=== PATIENT | female | born 1975 | race Caucasian/White ===

== ENCOUNTER 2019-06-06 04:30 | Emergency (ER) | payer OTHER ==
[~2019-06-06] VITALS: Ht 154.9 cm; Wt 65.8 kg
[~2019-06-06 04:30] MED LIST: ALBU90I INH; ALBU90OI INH; AMOCLA875 PO; AMOX500 PO; AZIT250 PO; Ativan1 MG PO; BUSP10 PO; CEPH500 PO; CHLO25 PO; CITA20 PO; CLIN300 PO; CLON.2; CLON1 PO; CODGUAEL PO; CRUTCH3 USE; CYCL10; DEXGUASY PO; DOXY100 PO; Desyrel PO; FLUSAL2505; FLUSAL2505 IH; FLUT.05NI; FLUT110OIA; HYDACE5 PO; HYDACE7.5 PO; HYDGUAL120 PO; IBUHYD PO; IBUP600 PO; KETO10; LIDO2L MM; LORA.5 PO; LORA1 PO; LORA2 PO; MAGOXI400 PO; METPHE20ER PO; METR500 PO; MORP30ER; MUPI2TC TOP; NAPR500 PO; NAPR550 PO; NIAC250ER; Naltrexone HCl50 MG; ONDA8 PO; OXYACE5T PO; OXYACE7.5T; PENVK500 PO; PRED10 PO; PRED20 PO; PRODEXEL PO; PROM25 PO; Percocet 5-3251 EACH PO; QUET25 PO; RXHYDGUAS PO; RXNAPNA550 PO; RXPENVK250 PO; RXTRAM50 PO; SERT100; SERT100 PO; SERT25; SERT50; SERT50 PO; SULTRIDS PO; Sulfamethoxazo1 EAC4; TRAACE PO; TRAM50 PO; TRAZ100; TRAZ50 PO; VICODIN; Veetids 500500 MG PO; ZOLOFT
[2019-06-06] MEDS ORDERED: SERT100 PO (04:43)
== END 2019-06-06 06:16 | disposition home or self-care (01) ==
LOC: ER 04:30
DX: J02.9 Acute pharyngitis, unspecified (principal); F32.9 Major depressive disorder, single episode, unspecified; F17.210 Nicotine dependence, cigarettes, uncomplicated; Z88.8 Allergy status to other drugs, medicaments and biological substances; Z79.899 Other long term (current) drug therapy
CPT/HCPCS: 87081; 87430; 99283

== ENCOUNTER 2019-06-18 11:21 | Emergency (ER) | payer OTHER ==
[~2019-06-18] VITALS: Ht 154.9 cm; Wt 58.1 kg
[2019-06-18] MEDS ORDERED: FLONASE ALLERG9.9 ML (11:57)
[2019-06-18] MEDS ORDERED: Sudogest30 MG PO (11:57)
[2019-06-18] MEDS ORDERED: PRED20 PO (11:57)
[2019-06-18] MEDS ORDERED: IBUP800 PO (11:57)
== END 2019-06-18 12:07 | disposition home or self-care (01) ==
LOC: ER 11:21
DX: J32.9 Chronic sinusitis, unspecified (principal); Z88.8 Allergy status to other drugs, medicaments and biological substances; Z88.1 Allergy status to other antibiotic agents; Z88.6 Allergy status to analgesic agent; Z79.899 Other long term (current) drug therapy; F32.9 Major depressive disorder, single episode, unspecified; J45.909 Unspecified asthma, uncomplicated; J44.9 Chronic obstructive pulmonary disease, unspecified; F17.210 Nicotine dependence, cigarettes, uncomplicated
CPT/HCPCS: 71046; 94640; 99283-25

== ENCOUNTER 2019-07-10 12:21 | Emergency (ER) | payer OTHER ==
[~2019-07-10] VITALS: Ht 154.9 cm; Wt 56.7 kg
[~2019-07-10 12:21] MED LIST changes: +FLONASE ALLERG9.9 ML; +IBUP800 PO; +Sudogest30 MG PO
== END 2019-07-10 13:52 | disposition home or self-care (01) ==
LOC: ER 12:21
DX: S00.83XA Contusion of other part of head, initial encounter (principal); Y04.8XXA Assault by other bodily force, initial encounter; F32.9 Major depressive disorder, single episode, unspecified; J44.9 Chronic obstructive pulmonary disease, unspecified; Z88.1 Allergy status to other antibiotic agents; Z88.6 Allergy status to analgesic agent; Z88.8 Allergy status to other drugs, medicaments and biological substances; Z79.899 Other long term (current) drug therapy
CPT/HCPCS: 70486; 99284-25

== ENCOUNTER 2019-08-13 12:51 | Emergency (ER) | payer OTHER ==
[~2019-08-13] VITALS: Ht 154.9 cm; Wt 57.1 kg
[2019-08-13 14:07] LABS: BASOPHILS ABSOLUTE AUTO 0.04 K/mm3 (0.00-0.23); BASOPHILS PERCENT AUTO 0 % (0-2); EOSINOPHILS ABSOLUTE AUTO 0.04 K/mm3 (0.00-0.68); EOSINOPHILS PERCENT AUTO 0 % (0-6); Hematocrit 41.4 % (33.0-51.0); IMMATURE GRAN ABSOLUTE AUTO 0.03 K/mm3 (0.00-0.10); IMMATURE GRAN PERCENT AUTO 0 % (0-1); LYMPHOCYTES ABSOLUTE AUTO 3.23 K/mm3 (0.84-5.20); LYMPHOCYTES PERCENT AUTO 24 % (21-46); MONOCYTES ABSOLUTE AUTO 0.73 K/mm3 (0.16-1.47); MONOCYTES PERCENT AUTO 5 % (4-13); Mean Corpuscular HGB 33.1 pg (26.0-34.0); Mean Corpuscular HGB Conc 33.8 g/dL (31.5-36.5); Mean Corpuscular Volume 98 fL (80-100); Mean Platelet Volume 10.5 fL (9.1-12.4); NEUTROPHILS PERCENT AUTO 70 % (41-73); Platelet Count 113 K/mm3 (150-400); RDW Coefficient Variation 14.1 % (11.7-14.2); RDW Standard Deviation 51.5 fL (35.1-46.3); Red Blood Cell Count 4.23 M/mm3 (3.80-5.20); White Blood Cell Count 13.47 K/mm3 (4.00-11.30)
[2019-08-13 14:25] LABS: Troponin I <0.015 ng/mL (0.000-0.040)
[2019-08-13 14:28] LABS: Alanine Aminotransfer (ALT/SGP 161 U/L (12-78); Albumin, Blood 4.5 g/dL (3.4-5.0); Albumin/Globulin Ratio 1.1 (0.8-1.8); Alk Phos 76 U/L (50-136); Anion Gap 10 mmol/L (6-16); Aspartate Aminotrans (AST/SGOT 311 U/L (12-37); Bilirubin, Total 1.2 mg/dL (0.1-1.0); Blood Urea Nitrogen 11 mg/dL (8-24); CO2, Blood 24 mmol/L (21-32); Chloride, Blood 103 mmol/L (98-108); Creatinine, Blood 0.61 mg/dL (0.40-1.00); Globulin, Blood 4.1 g/dL (2.2-4.0); Glomerular Filtration Rate >60 (60-); Glucose, Blood 94 mg/dL (70-99); Potassium, Blood 3.5 mmol/L (3.5-5.5); Sodium, Blood 137 mmol/L (136-145); Total Protein, Blood 8.6 g/dL (6.4-8.2)
[2019-08-14] MEDS ORDERED: SERT100 PO (15:02)
== END 2019-08-13 18:09 | disposition left against medical advice (07) ==
LOC: ER 12:51
PROVIDERS: Physician Assistant
DX: Z53.21 Procedure and treatment not carried out due to patient leaving prior to being seen by health care provider (principal)
CPT/HCPCS: 36415; 71046; 80053; 83690; 84484; 85025; 93005; 93010; 99283

== ENCOUNTER 2019-08-14 09:32 | Inpatient (IN) | payer OTHER ==
[~2019-08-14] VITALS: Ht 154.9 cm; Wt 62.6 kg
[2019-08-14 13:48] LABS: Hematocrit 32.8 % (33.0-51.0); Hemoglobin 11.4 g/dL (11.5-16.0); Mean Corpuscular HGB 33.8 pg (26.0-34.0); Mean Corpuscular HGB Conc 34.8 g/dL (31.5-36.5); Mean Corpuscular Volume 97 fL (80-100); Mean Platelet Volume 11.3 fL (9.1-12.4); Platelet Count 67 K/mm3 (150-400); RDW Coefficient Variation 13.9 % (11.7-14.2); RDW Standard Deviation 49.8 fL (35.1-46.3); Red Blood Cell Count 3.37 M/mm3 (3.80-5.20); White Blood Cell Count 14.88 K/mm3 (4.00-11.30)
[2019-08-14 14:09] LABS: Albumin/Globulin Ratio 0.8 (0.8-1.8); Bilirubin, Total 1.4 mg/dL (0.1-1.0); Bun/Creatinine Ratio 19.3 (12.0-20.0); Calcium, Blood 7.3 mg/dL (8.5-10.1); Creatinine, Blood 1.09 mg/dL (0.40-1.00); Globulin, Blood 3.8 g/dL (2.2-4.0); Potassium, Blood 3.4 mmol/L (3.5-5.5); Total Protein, Blood 6.8 g/dL (6.4-8.2)
[2019-08-14] MEDS ORDERED: SERT100 PO (15:02)
[2019-08-14 15:39] LABS: BAND PERCENT MAN 7 % (0-8); BASOPHILS PERCENT MAN 0 % (0-2); EOSINOPHILS PERCENT MAN 0 % (0-6); LYMPHOCYTES ABSOLUTE MAN 0.89 K/mm3 (0.84-5.20); LYMPHOCYTES PERCENT MAN 6 % (21-46); MONOCYTES ABSOLUTE MAN 0.59 K/mm3 (0.16-1.47); MONOCYTES PERCENT MAN 4 % (4-13); NEUTROPHILS ABSOLUTE MAN 13.39 K/mm3 (1.96-9.15); SEG NEUTROPHILS PERCENT MAN 83 % (41-73); TOTAL CELLS COUNTED 100
--- NOTE | 2019-08-14 18:27 | NUR ---
PATIENT ARRIVED TO THE UNIT VIA STRETCHER. 1 PERSON TRANSFER. STATES LAST DRINK THIS AM. STATES SHE HAS BEEN DRINKING SIGNFICANTLY FOR 14 WEEKS. 1 PERSON ASSIST TO THE BATHROOM. ABLE TO MAKE HER NEEDS KNOWN.
--- NOTE | 2019-08-15 05:29 | NUR ---
SHIFT SUMMARY: CIWA SCORE RANGED FROM 6 TO 15 TONIGHT. PT HAS RESPONDED WELL TO LIBRIUM. STATES PAIN IMPROVED WITH OXYCODONE. 10/10 LOCATED IN RIGHT POSTERIOR BACK AND PT WAS ABLE TO FALL ASLEEP AFTER OXYCODONE DOSE. HAS BEEN COUGHING INTERMITTENTLY WHILE AWAKE, COUGH SOUNDS HACKY AND HAS BEGUN TO PRODUCE BLOOD STREAKED SPUTUM. MAINTAINING 02 SATS WNL ON RA. MAKES NEEDS KNOWN. CALL BUTTON IN REACH, BED LOW.
[2019-08-15 05:48] LABS: Hematocrit 34.8 % (33.0-51.0); Hemoglobin 11.9 g/dL (11.5-16.0); Mean Corpuscular HGB Conc 34.2 g/dL (31.5-36.5); Mean Corpuscular Volume 99 fL (80-100); Mean Platelet Volume 12.2 fL (9.1-12.4); Platelet Count 70 K/mm3 (150-400); RDW Coefficient Variation 14.2 % (11.7-14.2); RDW Standard Deviation 52.2 fL (35.1-46.3); White Blood Cell Count 19.47 K/mm3 (4.00-11.30)
[2019-08-15 06:18] LABS: Anion Gap 8 mmol/L (6-16); Blood Urea Nitrogen 18 mg/dL (8-24); Bun/Creatinine Ratio 31.2 (12.0-20.0); CO2, Blood 24 mmol/L (21-32); Calcium, Blood 8.2 mg/dL (8.5-10.1); Chloride, Blood 104 mmol/L (98-108); Creatinine, Blood 0.58 mg/dL (0.40-1.00); Glomerular Filtration Rate >60 (60-); Glucose, Blood 110 mg/dL (70-99); Magnesium, Blood 1.9 mg/dL (1.6-2.4); Potassium, Blood 3.8 mmol/L (3.5-5.5); Sodium, Blood 136 mmol/L (136-145)
[2019-08-15 06:23] LABS: BAND PERCENT MAN 14 % (0-8); BASOPHILS PERCENT MAN 0 % (0-2); EOSINOPHILS PERCENT MAN 0 % (0-6); LYMPHOCYTES PERCENT MAN 17 % (21-46); METAMYELOCYTE ABSOLUTE MAN 0.38 K/mm3 (0.00-0.00); METAMYELOCYTE PERCENT MAN 2 % (0-0); MONOCYTES ABSOLUTE MAN 0.19 K/mm3 (0.16-1.47); MONOCYTES PERCENT MAN 1 % (4-13); NEUTROPHILS ABSOLUTE MAN 15.57 K/mm3 (1.96-9.15); SEG NEUTROPHILS PERCENT MAN 66 % (41-73); TOTAL CELLS COUNTED 100
--- NOTE | 2019-08-15 15:20 | NUR ---
Spiritual care visit attempted. Upon receiving an admit referral, I visited patient. After introducing myself and the department I am from patient stated that she was tired and would like for me to come back tomorrow. I followed patient's wishes.
--- NOTE | 2019-08-15 18:12 | NUR ---
SHIFT SUMMARY- PT IS A/O, PLESANT, AND COOPERATIVE. PT CONTINUES TO RECEIVE CIWA. PT RECIEVING IV ANTIBIOTICS, AND IV FLUID THERAPY. PT EATING AND DRINKING WELL. PT HAS FAMILY AT THE BEDSIDE.
[2019-08-16 05:28] LABS: Hematocrit 34.6 % (33.0-51.0); Hemoglobin 11.8 g/dL (11.5-16.0); Mean Corpuscular HGB 33.7 pg (26.0-34.0); Mean Corpuscular HGB Conc 34.1 g/dL (31.5-36.5); Mean Corpuscular Volume 99 fL (80-100); Mean Platelet Volume 12.6 fL (9.1-12.4); Platelet Count 67 K/mm3 (150-400); RDW Coefficient Variation 13.7 % (11.7-14.2); RDW Standard Deviation 49.6 fL (35.1-46.3); White Blood Cell Count 14.02 K/mm3 (4.00-11.30)
--- NOTE | 2019-08-16 05:44 | NUR ---
SHIFT SUMMARY: PULSE ELEVATED IN 110'S AND 120'S. LOW GRADE TEMPS. CIWA SCORES 7-14. INCREASED ANXIETY AND AGITATION TONIGHT ESPECIALLY SURROUNDING PAIN. POST R LL PAIN 10/10 TONIGHT, DOWN TO 5/10 AFTER OXYCODONE. COUGH PRODUCING SMALL AMTS OF PINK SPUTUM. COARSE INSPIRATORY RHONCHI IN R MID AND LOWER LOBES. STRONGER AND STEADIER WITH GETTING UP AND AMBULATING TONIGHT. BED LOW, CALL BUTTON IN REACH.
[2019-08-16 05:50] LABS: Anion Gap 7 mmol/L (6-16); Blood Urea Nitrogen 10 mg/dL (8-24); Bun/Creatinine Ratio 17.4 (12.0-20.0); CO2, Blood 24 mmol/L (21-32); Calcium, Blood 8.3 mg/dL (8.5-10.1); Chloride, Blood 102 mmol/L (98-108); Creatinine, Blood 0.58 mg/dL (0.40-1.00); Glomerular Filtration Rate >60 (60-); Glucose, Blood 91 mg/dL (70-99); Magnesium, Blood 1.4 mg/dL (1.6-2.4); Potassium, Blood 3.2 mmol/L (3.5-5.5); Sodium, Blood 133 mmol/L (136-145)
[2019-08-16 05:58] LABS: Phosphorus, Blood 0.8 mg/dL (2.5-4.9)
--- NOTE | 2019-08-16 08:24 | NUR ---
PATIENT TO BE TRANSFERED TO ICU 2. GAVE REPORT TO [facility] [employer] CLAIMS EXAMINER AT 0820. PATIENT TO BE TRANSPORTED SHORTLY.
--- NOTE | 2019-08-16 08:30 | NUR ---
ASSUMED CARE: ASSUMED CARE OF PT @ 0830, RECEIVED REPORT FROM STEVIE REYNOSO. PT TRANSFERED FROM MEDICAL FLOOR. PT WAS ABLE TO AMBULATE IND TO BED. PT IS A/OX3. PT DENIES ANY SUBSTERNAL CP, AND SOB AT THIS TIME. SIT WITH HR IN THE 120'S. CIWA SCORE OF AN 8. PT C/O BACK PAIN, MEDICATED PER EMAR. PT ON RA WITH SPO2 ABOVE 90%. SO AT BEDSIDE.
--- NOTE | 2019-08-16 09:40 | NUR ---
LATE ENTRY FOR THIS MORNING, 0800. JUST BEFORE 0800 THIS MORNING THE PATIENT CALLED FOR ME ASKING FOR SOME LORAZEPAM. I WENT TO THE [facility] TO PULL THE REQUESTED MEDICATION, ASSUMING IT WAS ORDERED SINCE PATIENT IS GOING THROUGH [facility] W/D. NONE WAS ORDERED. I WENT TO NOTIFY PATIENT THAT I WOULD BE CALLING DR LIZARRAGA TO GET AN ORDER SHE HAD NONE ORDERED. SHE MENTIONED HAVING SOME DURING THE NIGHT; I LOOKED AGAIN AND SAW NONE ORDERED FOR HER. I CALLED DR LIZARRAGA, INFORMED HIM THAT PATIENT HAD A CIWA OF [address] LIZARRAGA GAVE ORDERS TO TRANSFER PATIENT TO ICU AND HE WOULD PLACE ATIVAN ORDERS. NOTIFIED LUMBER RACKER OF THE TRANSFER ORDER.
--- NOTE | 2019-08-16 09:48 | NUR ---
5mg oxycodone administered per orders for pleuritic pain. Visitor left briefly, then returned to pt's bedside. Upon pain reassessment, pt is drowsy, unable to keep eyes open, speaking in mumbled sentences, unable to hold a conversation, falling asleep while talking. VSS, SpO2 97% on RA. Pt's visitor asleep in chair at pt's bedside. Dr. Dias notified of pt's change in mentation, prn narcan order received, will continue to monitor. Curtain opened to better visualize pt and visitor.
--- NOTE | 2019-08-16 18:08 | NUR ---
SHIFT SUMMARY: PT CONTINUES TO BE DROWSY, HOWEVER IS AROUSABLE. SHE CONTINUES TO SLUR HER WORDS. SHE WAS REQUESTING ATIVAN FOR PAIN, NO ATIVAN WAS GIVEN SINCE LAST DOSE DUE TO CHANGES IN BEHAVIOR AND MENTATION. PT WAS ALSO EDUCATED ON THE USE OF ATIVAN. CIWA SCORES HAVE BEEN 8, AND HAS BEEN MEDICATED WITH 25MG OF LIBRIUM INDICATED. PT VSS. PT ON RA WITH SP02 ABOVE 95%. PT HAS BEEN GETTING OUT OF BED W/ SBA TO URINATE. URINE CLEAR YELLOW. PT DENIES ANY N/V AT THIS TIME. PT HAS BEEN AFEBRILE SINCE ARRIVAL TO UNIT. SO IN ROOM, CLOSE OBSERVATION NANCY PULLED BACK IN ROOM. WILL CONTINUE TO MONITOR PT UNTIL REPORT IS GIVEN TO ONCOMING SHIFT.
--- NOTE | 2019-08-16 20:30 | NUR ---
ASSUMPTION OF CARE ASSUMED CARE OF PT AT 1900, PT RESTING IN BED, AROUSES TO VERBAL STIMULI, A&Ox4. LS CLEAR T/O, O2 SATURATIONS ABOVE 90% ON RA, MOIST NON-PRODUCTIVE COUGH NOTED. MONITOR SHOWS SINUS TACH WITH A RATE 100-120'S, PT HYPERTENSIVE WITH SBP 140'S. INITIAL CIWA 5. PT COMPLAINS OF HEAD AND CHEST/BACK PAIN, PRN MEDICATIONS PROVIDED. PT AMBULATES WITH SBA TO BEDSIDE TOILET, TOLERATING PO INTAKE WELL.
[2019-08-17 03:39] LABS: Hematocrit 36.3 % (33.0-51.0); Hemoglobin 12.1 g/dL (11.5-16.0); Mean Corpuscular HGB 33.2 pg (26.0-34.0); Mean Corpuscular HGB Conc 33.3 g/dL (31.5-36.5); Mean Corpuscular Volume 100 fL (80-100); Mean Platelet Volume 11.9 fL (9.1-12.4); Platelet Count 89 K/mm3 (150-400); RDW Coefficient Variation 13.4 % (11.7-14.2); RDW Standard Deviation 49.6 fL (35.1-46.3); Red Blood Cell Count 3.65 M/mm3 (3.80-5.20); White Blood Cell Count 13.04 K/mm3 (4.00-11.30)
[2019-08-17 04:13] LABS: Alanine Aminotransfer (ALT/SGP 50 U/L (12-78); Albumin, Blood 2.5 g/dL (3.4-5.0); Albumin/Globulin Ratio 0.5 (0.8-1.8); Alk Phos 75 U/L (50-136); Anion Gap 9 mmol/L (6-16); Aspartate Aminotrans (AST/SGOT 36 U/L (12-37); Bilirubin, Total 1.1 mg/dL (0.1-1.0); Blood Urea Nitrogen 6 mg/dL (8-24); Bun/Creatinine Ratio 10.8 (12.0-20.0); CO2, Blood 23 mmol/L (21-32); Calcium, Blood 8.4 mg/dL (8.5-10.1); Chloride, Blood 100 mmol/L (98-108); Creatinine, Blood 0.56 mg/dL (0.40-1.00); Globulin, Blood 4.7 g/dL (2.2-4.0); Glomerular Filtration Rate >60 (60-); Glucose, Blood 80 mg/dL (70-99); Magnesium, Blood 1.3 mg/dL (1.6-2.4); Phosphorus, Blood 2.5 mg/dL (2.5-4.9); Potassium, Blood 3.3 mmol/L (3.5-5.5); Sodium, Blood 132 mmol/L (136-145); Total Protein, Blood 7.2 g/dL (6.4-8.2)
--- NOTE | 2019-08-17 06:00 | NUR ---
SHIFT SUMMARY PT HAD SHORT PERIODS OF REST T/O THE NIGHT, SOME CONFUSION/ALT LOC NOTED BRIEFLY DURING SHIFT, SOME ANXIETY AND AGITATION, PRN LIBRIUM PROVIDED WITH GOOD EFFECT, CIWA RANGED FROM 5-11, USES CALL LIGHT APPROPRIATELY. PT COMPLAINED OF PAIN IN THE POSTERIOR COSTAL AREA, PRN OXYCODONE PROVIDED. LS CLEAR, DIMINISHED IN RLL, O2 SATURATIONS MAINTAINED ABOVE 90% ON RA, MONITOR SHOWS SINUS TACH WITH RATE 100-120, HR INCREASED WITH ACTIVITY TO 130'S WITH QUICK RECOVERY. PT UP TO BED SIDE TOILET FREQUENTLY T/O SHIFT, SOME WEAKNESS NOTED BUT ABLE TO AMBULATE ON OWN WITH SBA. ELECTROLYTE PROTOCOL INITIATED THIS SHIFT, KCL AND MAG CURRENTLY INFUSING, PT COMPLAINED OF BURNING AT IV SITE WITH KCL INFUSION, PT WORRIED ABOUT INFECTION. EXPLAINED TO PT BURNING AND PAIN CAN BE EXPECTED WITH POTASSIUM INFUSION. PT TOLERATING PO INTAKE WELL, EDUCATED PT ON INCENTIVE SPIROMETER USE.
--- NOTE | 2019-08-17 08:34 | NUR ---
DR. LIZARRAGA AWARE OF LAB RESULTS AND MEDICATION ORDERS, MAG AND POTASSIUM INFUSIONS STOPPED AT [address] LIZARRAGA, NO NEW ORDERS AT THIS TIME.
--- NOTE | 2019-08-17 09:51 | NUR ---
ASSUMED CARE NOTE: ASSUMED CARE OF PT @ 0700, PT DROWSY, HOWEVER AROUSABLE. PT IS UNABLE TO FOLLOW A CONVERSATION AND CONTINUES TO NOD OFF. PT IS REPEATING SELF AND ASKING THE SAME QUESTIONS. PT HAS BEEN C/O PAIN TO RIGHT LOWER BACK, HOWEVER, PT IS UNABLE TO STAY AWAKE FOR LONGER THAN 10 MINUTES. PT IS ON RA WITH SP02 ABOVE 90%. RR @ 14-18. PT CIWA SCORE OF 8 DUE TO HEADACHE,TREMORS MEDICATED WITH LIBRIUM PER EMAR. PT IN SIT W/ HR IN THE 110-120'S. UPDATED PT'S MOTHER, MOTHER STATED" MY DAUGHTER ALWAYS JUMPS FROM ONE TOPIC TO THE NEXT, AND SHE ALWAYS SLURS HER WORDS". PT'S MOTHER ALSO STATED THAT SHE HAS NOT SEEN PT IN MONTHS DUE TO PT'S ALCOHOL USE. HOLDING VISITORS DUE TO CHANGES IN MENTATION. WILL MONITOR PT T/O SHIFT.
[2019-08-17 17:23] LABS: Magnesium, Blood 1.6 mg/dL (1.6-2.4); Phosphorus, Blood 2.8 mg/dL (2.5-4.9); Potassium, Blood 3.4 mmol/L (3.5-5.5)
--- NOTE | 2019-08-17 17:46 | NUR ---
SHIFT SUMMARY: PT'S LAST CIWA WAS A 5. PT HAS NOT REQUIRED LIBRIUM SINCE THIS MORNING. PT IS MORE ALERT AND ORIENTED. SHE IS NOW ABLE TO MAINTAIN A CONVERSATION. PT IS EATING MEALS W/O DIFFICULTY. PT DENIES ANY N/V AT THIS TIME. PT HAS BEEN USING THE TOILET AND URINATING CLEAR YELLOW URINE. PT IS NOT C/O PAIN AT THIS TIME. PT HEADING TO PCU, REPORT GIVEN TO TUSHAR REYNOSO.
--- NOTE | 2019-08-17 18:43 | NUR ---
TRANSFER OF CARE REPORT RECEIVED FROM ANGELES MCKEON IN ICU. PT TRANSFERRED TO PCU 8 AT 1815. UPON INTRODUCING MYSELF, PT WAS TEARFULLY CONVERSING ON HER PHONE AND STATED HER PAIN IN HER RIGHT RIBS/BACK WAS A 10/10. PT WAS TREATED WITH OXYCONDONE PRN FOR PAIN. TELEMETRY SHOWED PT TO BE IN A SINUS TACH AT 107. ASCULATION OF THE LUNGS WAS DIM IN BILATERAL BASES, MORE ON THE RIGHT. PT IS ON ROOM AIR. ENCOURAGED PT TO UTILIZE THE INCENTIVE SPIROMETER AT BEDSIDE. EDUCATED PT ON ROOM AND CALL LIGHT USE. BED ALARM PLACED FOR PT SAFETY, ENCOURAGE PT TO CALL IF SHE NEEDED ASSISTANCE UP.
[2019-08-18 04:28] LABS: Anion Gap 9 mmol/L (6-16); Blood Urea Nitrogen 10 mg/dL (8-24); Bun/Creatinine Ratio 19.8 (12.0-20.0); CO2, Blood 23 mmol/L (21-32); Chloride, Blood 104 mmol/L (98-108); Creatinine, Blood 0.51 mg/dL (0.40-1.00); Glomerular Filtration Rate >60 (60-); Glucose, Blood 100 mg/dL (70-99); Magnesium, Blood 1.5 mg/dL (1.6-2.4); Phosphorus, Blood 4.4 mg/dL (2.5-4.9); Potassium, Blood 3.3 mmol/L (3.5-5.5); Sodium, Blood 136 mmol/L (136-145)
--- NOTE | 2019-08-18 08:24 | NUR ---
SHIFT SUMMARY ASSUMED CARE AT 1900, PATIENT SLEEPING ON HER SIDE IN BED. PATIENT WAKES TO VOICE STIMULI, AMBULATES W 1PER ASSIST SOMEWHAT WOBBLY TO BATHROOM, APPEARS DROWSY AND SLURRED OF SPEECH, BUT ORIENTED X3 AND ABLE TO PERFORM SERIAL ADDITION AT ANY MOMENT. PATIENT WAS GIVEN CIWA ASSESSMENT PER UNIT PROTOCOL THIS SHIFT, AND MEDICATED PER MD ORDER A RESULT OF CIWA SCORE IN CONSENSUS OF NURSE DISCRETION AND PATIENT PREFERENCE. PATIENT'S CIWA SCORES THIS SHIFT WERE OVER 8 FOUR TIMES, AND UNDER 8 ONCE. PATIENT WAS MEDICATED PER EMAR PRN ONCE THIS SHIFT, AND SLEPT WITHOUT DISTURBANCE FOR THE LAST 4 HOURS OF THE SHIFT. PASSED CARE AND REPORT TO ONCOMING ANGELES JEREZ AT 0700, BED LOCKED AND LOW, CALL LIGHT W/IN REACH,.
--- NOTE | 2019-08-18 18:46 | NUR ---
SHIFT SUMMARY CIWA SCORES FOR PT HAS BEEN 8 OR LESS THIS SHIFT. PT SLEPT OFF AND ON THROUGH OUT THE AFTERNOON. PT WAS MEDICATED WITH LIBRIUM X1. PT WOULD WAKE UP ASK FOR PAIN MEDS AND ATIVAN AND FALL BACK ASLEEP. PAIN IS REPORTED A 9/10 IN HER RIGHT RIBS/BACK. TELEMETERY HAS SHOWN PT TO BE IN A SINUS RHYTHM TO A SINUS TACH 90'S-100S. OTHER VITALS HAVE REMAINED STABLE.
[2019-08-19 04:51] LABS: BASOPHILS ABSOLUTE AUTO 0.02 K/mm3 (0.00-0.23); BASOPHILS PERCENT AUTO 0 % (0-2); EOSINOPHILS ABSOLUTE AUTO 0.26 K/mm3 (0.00-0.68); EOSINOPHILS PERCENT AUTO 4 % (0-6); Hematocrit 34.2 % (33.0-51.0); Hemoglobin 11.2 g/dL (11.5-16.0); IMMATURE GRAN ABSOLUTE AUTO 0.25 K/mm3 (0.00-0.10); IMMATURE GRAN PERCENT AUTO 4 % (0-1); LYMPHOCYTES ABSOLUTE AUTO 2.76 K/mm3 (0.84-5.20); LYMPHOCYTES PERCENT AUTO 47 % (21-46); MONOCYTES ABSOLUTE AUTO 0.68 K/mm3 (0.16-1.47); MONOCYTES PERCENT AUTO 12 % (4-13); Mean Corpuscular HGB 32.7 pg (26.0-34.0); Mean Corpuscular HGB Conc 32.7 g/dL (31.5-36.5); Mean Corpuscular Volume 100 fL (80-100); Mean Platelet Volume 10.4 fL (9.1-12.4); NEUTROPHILS PERCENT AUTO 32 % (41-73); Platelet Count 147 K/mm3 (150-400); Red Blood Cell Count 3.42 M/mm3 (3.80-5.20); White Blood Cell Count 5.87 K/mm3 (4.00-11.30)
[2019-08-19 05:12] LABS: Albumin, Blood 2.3 g/dL (3.4-5.0); Anion Gap 9 mmol/L (6-16); Blood Urea Nitrogen 11 mg/dL (8-24); Bun/Creatinine Ratio 23.1 (12.0-20.0); CO2, Blood 24 mmol/L (21-32); Calcium, Blood 9.2 mg/dL (8.5-10.1); Chloride, Blood 105 mmol/L (98-108); Creatinine, Blood 0.48 mg/dL (0.40-1.00); Glomerular Filtration Rate >60 (60-); Glucose, Blood 92 mg/dL (70-99); Magnesium, Blood 1.5 mg/dL (1.6-2.4); Phosphorus, Blood 5.2 mg/dL (2.5-4.9); Potassium, Blood 3.9 mmol/L (3.5-5.5); Sodium, Blood 138 mmol/L (136-145)
--- NOTE | 2019-08-19 06:45 | NUR ---
END OF SHIFT SUMMARY VSS, NO ACUTE CHANGES THIS SHIFT. CIWA HAS RANGED FROM AROUND 3-9. MEDICATED WITH 1MG ATIVAN ONCE AND 50MG LIBRIUM ONCE. SOME TREMORS NOTED AND ANXIETY THE BIGGEST FACTOR BEHIND THIS, EDUCATION GIVEN TO PT REGARDING THE USE OF ATIVAN IN TREATMENT OF ALCOHOL DETOX AND THE SYMPTOMS OF DT'S VERSUS PAIN/ANXIETY. PT'S LAST DRINK REPORTEDLY ON 08/14. PT HAS BEEN VERY PLEASANT WITH STAFF THIS SHIFT. PT HAS HAD MULTIPLE SNACKS T/O NIGHT AND HAS RESTED OFTEN. MEDICATED FOR PAIN THIS SHIFT WELL. PT ENCOURAGED TO USE INCENTIVE SPIROMETER AND FLUTTER VALVE. PT REMAINS SOMEWHAT UNSTEADY ON HER FEET AND HAS HAD BED ALARM AND SUPERVISION WHILE UP. DOES USE CALL LIGHT AT TIMES HOWEVER FOR HELP. WILL CONTINUE TO MONITOR UNTIL SHIFT CHANGE.
--- NOTE | 2019-08-19 12:25 | NUR ---
PT MARKETING SYSTEMS ANALYST LIGHT STS "UNHOOK THIS IV I'M GOING OUTSIDE" PT IS EUDCATED ABOUT HER ANTIBITIOTICS THAT ARE CURRENTLY INFUSING PT STS "I DON'T REALLY CARE TURN THEM OFF YOU CAN TURN THEM ON WHEN I GET BACK I'M LEAVING, IT'S JUST A FEW MINUTES THEY CAN DEAL" IV IS DISCONNECTED, PT THEN AMBULATED OUT WITH FRIEND
--- NOTE | 2019-08-19 17:51 | NUR ---
SHIFT NOTE PT HAS REQUESTED PAIN MEDICATION NUMEROUS TIMES TODAY, PT HAS BEEN MEDICATED FOR PAIN WITHIN PROTOCOL FOR PAIN SHE RATES 05/14. PT HAS MAINTAINED A CIWA OF AROUND 6 T/O THE DAY. PT HAS DEMANDED TO LEAVE WITH HER FRIEND TODAY, PT LEFT ROOM NUMEROUS TIMES TODAY DESPITE EDUCATION, PT STS "I DON'T CARE" IN RESPONSE TO EDUCATION. PT ALERT, ANSWERING QUESTIONS APPROPRIATELY. PT NOTED TO BE MORE ALERT WHEN SHE CAN BE NOTED TALKING FREELY ON CELLPHONE ALONE IN ROOM, WHEN STAFF ENTERS ROOM THERE IS A SUDDEN DECREASE IN RESPONSIVENESS.
[2019-08-20 04:35] LABS: BASOPHILS ABSOLUTE AUTO 0.03 K/mm3 (0.00-0.23); BASOPHILS PERCENT AUTO 1 % (0-2); EOSINOPHILS ABSOLUTE AUTO 0.21 K/mm3 (0.00-0.68); EOSINOPHILS PERCENT AUTO 5 % (0-6); Hematocrit 33.3 % (33.0-51.0); IMMATURE GRAN ABSOLUTE AUTO 0.17 K/mm3 (0.00-0.10); IMMATURE GRAN PERCENT AUTO 4 % (0-1); LYMPHOCYTES ABSOLUTE AUTO 1.85 K/mm3 (0.84-5.20); LYMPHOCYTES PERCENT AUTO 46 % (21-46); MONOCYTES ABSOLUTE AUTO 0.34 K/mm3 (0.16-1.47); MONOCYTES PERCENT AUTO 9 % (4-13); Mean Corpuscular Volume 100 fL (80-100); Mean Platelet Volume 10.8 fL (9.1-12.4); NEUTROPHILS ABSOLUTE AUTO 1.41 K/mm3 (1.96-9.15); NEUTROPHILS PERCENT AUTO 35 % (41-73); Platelet Count 207 K/mm3 (150-400); RDW Coefficient Variation 12.9 % (11.7-14.2); RDW Standard Deviation 47.8 fL (35.1-46.3); Red Blood Cell Count 3.33 M/mm3 (3.80-5.20); White Blood Cell Count 4.01 K/mm3 (4.00-11.30)
[2019-08-20 04:50] LABS: Albumin, Blood 2.3 g/dL (3.4-5.0); Anion Gap 5 mmol/L (6-16); Blood Urea Nitrogen 8 mg/dL (8-24); Bun/Creatinine Ratio 16.6 (12.0-20.0); CO2, Blood 28 mmol/L (21-32); Calcium, Blood 8.7 mg/dL (8.5-10.1); Chloride, Blood 108 mmol/L (98-108); Creatinine, Blood 0.48 mg/dL (0.40-1.00); Glomerular Filtration Rate >60 (60-); Glucose, Blood 74 mg/dL (70-99); Magnesium, Blood 1.6 mg/dL (1.6-2.4); Phosphorus, Blood 3.3 mg/dL (2.5-4.9); Sodium, Blood 141 mmol/L (136-145)
--- NOTE | 2019-08-20 05:29 | NUR ---
END OF SHIFT SUMAMRY VSS. NO ACUTE CHANEGS THIS SHIFT EXCEPT INSTANCE OF "EXCRUCIATING PAIN IN R LUNG" WITH AM LAB/VITALS. PT HAD BEEN RESTING SOUNDLY FOR HOURS BEFORE THIS INCIEMNCE AND HAD THUS NOT BEEN EXCRETING SECRETIONS R/T PNA. WITH SOME PAIN MEDS AND REPOSITIONING AND FLUTTER VALVE PT'S PAIN HAS DECREASED TOMANEAGABLE NOW. CIWAS <8M, NO ATIVAN OR LIBRIUM ADMINISTERED THIS SHIFT. HEATING PAD IN PLACE FOR PAIN WELL. PT HAS AIDEN DUCATED WHY LEAVING UNIT IN WC WITH FRIEND IS NOT CONDONED BUT PT CONTINUES TO DO THIS. PT APPEARS MORE STEADY WHILE AMBULATING AND C/O OF LESS DIZZINESS. R OWER LOBE CONTINUES TO BE REAALY DIM BUT IS SHOWIMNG IMPROVEMENT WITH INCREASED BREATH SOUNDS IN THIS AREA. PT USES CALL LIGHT FLAKO[SHARONDA. WILL CONTINUE TOMONITOR UNTIL SHIFT CHANGE.
--- NOTE | 2019-08-20 08:08 | NUR ---
BEDSIDE REPORT Upon entering the room, strong odor of smoke detected. Pt denied smoking in the room. Bathroom door was opened, and odor was overpowering. Pt then admitted to taking "a few drags on a cigarette". She apologized, and gave me her matchbox and what was remaining of a broken cigarette. She gave me permission to dispose of them, which I did. Explained that smoking is both not permitted, as well as dangerous in the hospital due to fire alarm system and use of oxygen. She apologized again.
--- NOTE | 2019-08-20 10:02 | NUR ---
The pt appears to be sleeping in a darkened room. She responds minimally when I ask to scan her bracelet for IV antibiotic administration.
--- NOTE | 2019-08-20 13:17 | NUR ---
The pt is up in the room, having dressed after showering. She is a little confused,states that she thought that she was obliged to leave the hospital today. I explained that the doctor said she was ready for discharge, but since the doctor had been told by the pt that she did not have any where to go until tomorrow, she would be able to stay here (possibly transferring to medical floor) until then. After this clarification, the pt still seemed a little confused regarding ongoing events, but after it was explained a second time, she seemed to understand. Nephew of the pt is also in the room. The pt states that she would like to go outside for some fresh air. A wheelchair is in the room, and her nephew is willing to take her outside. Telemetry monitoring has been discontined, and the pt is medical status. She is gathering her belongings, and walking around the room. STates that she is still in pain, states that it is a sharp pain when she breathes in. She was given pain medication about 1.5 hours ago, by another RN.
[2019-08-20] MEDS ORDERED: ACET325 PO (13:46)
[2019-08-20] MEDS ORDERED: ALBU90OI INH (13:48)
[2019-08-20] MEDS ORDERED: CEFU500T30 PO (13:50)
[2019-08-20] MEDS ORDERED: Docusate Sodiu1 EACH PO (13:52)
[2019-08-20] MEDS ORDERED: GUAI600T33 PO (13:53)
[2019-08-20] MEDS ORDERED: Culturelle1 CAP PO (13:54)
[2019-08-20] MEDS ORDERED: PANT40 PO (13:55)
[2019-08-20] MEDS ORDERED: B-1100 MG PO (13:56)
[2019-08-20] MEDS ORDERED: TRAM50 PO (14:07)
--- NOTE | 2019-08-20 14:57 | NUR ---
1345 The pt was requested to stay in her room until care could be completed. Her nephew was in the process of wheeling her from the room, in a visitor wheelchair, but after the request he immediately took her back into the room. When I entered the room shortly after to continue her care, both the nephew, the wheelchair, and the patient were gone, but pt belongings were still in the room. when the pt was wheeled back into the room at 1345 by her nephew, she stated that they were just tired of waiting. I asked the nephew to explain why he took her outside after being asked to wait for the RN in the room, and he just said, "OOps". The pt said, "I apologize". Per AJ in security, the security cameras showed that the pt had been taken in a wheelchair by the young man wearing a black cap, black jacket, carlos pants and black boots towards the [facility] and disappeared out of view behind the trees during the time frame of 1315 to 1330. At 1345, I explained to the pt and the nephew that discarge material planner had notified me that they had found a place for her to stay at [facility] and transportation could also be set up for her. The nephew stated that he had taken the bus to get to the hospital.
--- NOTE | 2019-08-20 15:04 | NUR ---
0415 I spoke again with the patient, who was at the time in the room on her phone, and she said she was attempting to check her bank balance. Nephew was in the room as well, lying on the bed, staring at me. Pt became irritated at her attempt to use the phone, and told me to explain her discharge instructions to her. Initially, she stated that she did want assistance with transportation. I explained that it was a [facility] living and so her nephew wouldn't be able to accompany her. He stated, "I'll be fine." I reviewed her discharge instructions with her, medications, and instructions for follow up. While in the room, I called Elvira Javed on [employer] to ask about transportation, and Elvira asked if the pt wanted it, as she had apparently declined earlier to Elvira. The pt then said to me that she didn't want transportation to be arranged; that she would take care of everything by herself. She was taken out for discharge in a wheelchair by CONNIE Lara, with the nephew accompanying them.
== END 2019-08-20 14:23 | disposition home or self-care (01) | DRG 871 ==
LOC: ER 09:32 → PCU 15:03 → MEDS 15:03 → ICUE 08-16 08:33 → PCU 08-17 18:09
PROVIDERS: Emergency Medicine; Internal Medicine; ADMIT Internal Medicine
DX: A41.9 Sepsis, unspecified organism (principal); J18.9 Pneumonia, unspecified organism; E87.2 Acidosis; F10.239 Alcohol dependence with withdrawal, unspecified; J44.0 Chronic obstructive pulmonary disease with (acute) lower respiratory infection; J44.1 Chronic obstructive pulmonary disease with (acute) exacerbation; R65.20 Severe sepsis without septic shock; F32.9 Major depressive disorder, single episode, unspecified; F17.210 Nicotine dependence, cigarettes, uncomplicated; F43.12 Post-traumatic stress disorder, chronic; D69.6 Thrombocytopenia, unspecified; E87.6 Hypokalemia; K76.0 Fatty (change of) liver, not elsewhere classified; K29.70 Gastritis, unspecified, without bleeding; Y90.8 Blood alcohol level of 240 mg/100 ml or more
CPT/HCPCS: 36415; 71260; 80048; 80053; 80069; 83605; 83735; 84100; 84132; 84145; 85025; 85027; 87040; 94640; 94667; 94760; 96361; 96365-59; 96366-59; 96367-59; 96375-59; 99285-25; A9270; C9113; G0480; J0456; J0696; J1100; J2060; J2270; J3010; J3411; J3475; J3480; J7030; J7042; J7050; J7060; Q9967

== ENCOUNTER 2019-08-23 17:32 | Emergency (ER) | payer OTHER ==
[~2019-08-23 17:32] MED LIST changes: +ACET325 PO; +B-1100 MG PO; +CEFU500T30 PO; +Culturelle1 CAP PO; +Docusate Sodiu1 EACH PO; +GUAI600T33 PO; +PANT40 PO
== END 2019-08-23 18:37 | disposition left against medical advice (07) ==
LOC: ER 17:32
DX: Z53.21 Procedure and treatment not carried out due to patient leaving prior to being seen by health care provider (principal)

== ENCOUNTER 2019-08-25 15:42 | Emergency (ER) | payer OTHER ==
[~2019-08-25] VITALS: Ht 154.9 cm; Wt 59.0 kg
== END 2019-08-25 16:54 | disposition home or self-care (01) ==
LOC: ER 15:42
DX: R07.81 Pleurodynia (principal); F10.129 Alcohol abuse with intoxication, unspecified; J44.9 Chronic obstructive pulmonary disease, unspecified; Z88.8 Allergy status to other drugs, medicaments and biological substances; Z79.899 Other long term (current) drug therapy; F32.9 Major depressive disorder, single episode, unspecified
CPT/HCPCS: 71045; 93005; 93010; 99284-25

== ENCOUNTER 2019-08-28 04:01 | Emergency (ER) | payer OTHER ==
[~2019-08-28] VITALS: Ht 154.9 cm; Wt 59.0 kg
== END 2019-08-28 06:10 | disposition home or self-care (01) ==
LOC: ER 04:01
DX: S01.112A Laceration without foreign body of left eyelid and periocular area, initial encounter (principal); S50.12XA Contusion of left forearm, initial encounter; S50.11XA Contusion of right forearm, initial encounter; F17.210 Nicotine dependence, cigarettes, uncomplicated; Z87.01 Personal history of pneumonia (recurrent); Z88.8 Allergy status to other drugs, medicaments and biological substances; W18.30XA Fall on same level, unspecified, initial encounter
CPT/HCPCS: 12011; 72040; 73090; 99283-25

== ENCOUNTER 2019-08-28 12:12 | Emergency (ER) | payer OTHER ==
[~2019-08-28] VITALS: Ht 162.6 cm; Wt 49.9 kg
== END 2019-08-28 12:41 ==
LOC: ER 12:12
DX: F10.129 Alcohol abuse with intoxication, unspecified (principal); J44.9 Chronic obstructive pulmonary disease, unspecified; F32.9 Major depressive disorder, single episode, unspecified; F17.210 Nicotine dependence, cigarettes, uncomplicated; Z88.8 Allergy status to other drugs, medicaments and biological substances; Z88.5 Allergy status to narcotic agent; Z79.899 Other long term (current) drug therapy; Z79.51 Long term (current) use of inhaled steroids
CPT/HCPCS: 99282

== ENCOUNTER 2019-08-30 16:56 | Emergency (ER) | payer OTHER ==
[~2019-08-30] VITALS: Ht 154.9 cm; Wt 56.7 kg
[2019-08-30 18:13] LABS: BASOPHILS ABSOLUTE AUTO 0.06 K/mm3 (0.00-0.23); BASOPHILS PERCENT AUTO 1 % (0-2); EOSINOPHILS ABSOLUTE AUTO 0.13 K/mm3 (0.00-0.68); EOSINOPHILS PERCENT AUTO 1 % (0-6); Hematocrit 37.9 % (33.0-51.0); Hemoglobin 12.4 g/dL (11.5-16.0); IMMATURE GRAN ABSOLUTE AUTO 0.02 K/mm3 (0.00-0.10); IMMATURE GRAN PERCENT AUTO 0 % (0-1); LYMPHOCYTES ABSOLUTE AUTO 6.89 K/mm3 (0.84-5.20); LYMPHOCYTES PERCENT AUTO 58 % (21-46); MONOCYTES ABSOLUTE AUTO 0.39 K/mm3 (0.16-1.47); MONOCYTES PERCENT AUTO 3 % (4-13); Mean Corpuscular HGB 32.3 pg (26.0-34.0); Mean Corpuscular HGB Conc 32.7 g/dL (31.5-36.5); Mean Corpuscular Volume 99 fL (80-100); Mean Platelet Volume 9.9 fL (9.1-12.4); NEUTROPHILS ABSOLUTE AUTO 4.47 K/mm3 (1.96-9.15); NEUTROPHILS PERCENT AUTO 37 % (41-73); Platelet Count 419 K/mm3 (150-400); RDW Coefficient Variation 12.7 % (11.7-14.2); RDW Standard Deviation 46.1 fL (35.1-46.3); Red Blood Cell Count 3.84 M/mm3 (3.80-5.20); White Blood Cell Count 11.96 K/mm3 (4.00-11.30)
[2019-08-30 18:34] LABS: Alanine Aminotransfer (ALT/SGP 46 U/L (12-78); Albumin, Blood 3.5 g/dL (3.4-5.0); Albumin/Globulin Ratio 0.7 (0.8-1.8); Alk Phos 99 U/L (50-136); Anion Gap 10 mmol/L (6-16); Aspartate Aminotrans (AST/SGOT 41 U/L (12-37); Bilirubin, Total 0.6 mg/dL (0.1-1.0); Blood Urea Nitrogen 7 mg/dL (8-24); Bun/Creatinine Ratio 11.8 (12.0-20.0); CO2, Blood 25 mmol/L (21-32); Calcium, Blood 9.2 mg/dL (8.5-10.1); Chloride, Blood 101 mmol/L (98-108); Creatinine, Blood 0.59 mg/dL (0.40-1.00); Ethanol (Alcohol), Blood, Med 286 mg/dL; Globulin, Blood 4.7 g/dL (2.2-4.0); Glomerular Filtration Rate >60 (60-); Glucose, Blood 76 mg/dL (70-99); Potassium, Blood 3.1 mmol/L (3.5-5.5); Sodium, Blood 136 mmol/L (136-145); Total Protein, Blood 8.2 g/dL (6.4-8.2)
== END 2019-08-30 19:17 | disposition other institution (70) ==
LOC: ER 16:56
PROVIDERS: Physician Assistant
DX: Z53.21 Procedure and treatment not carried out due to patient leaving prior to being seen by health care provider (principal)
CPT/HCPCS: 36415; 80053; 83605; 84484; 85025; 93005; 93010; 99284-25; G0480

== ENCOUNTER 2019-09-01 07:25 | Emergency (ER) | payer OTHER ==
[~2019-09-01] VITALS: Ht 154.9 cm; Wt 54.4 kg
== END 2019-09-01 08:45 | disposition home or self-care (01) ==
LOC: ER 07:25
DX: S50.12XA Contusion of left forearm, initial encounter (principal); F10.129 Alcohol abuse with intoxication, unspecified; J44.9 Chronic obstructive pulmonary disease, unspecified; F32.9 Major depressive disorder, single episode, unspecified; Z88.8 Allergy status to other drugs, medicaments and biological substances; Z79.899 Other long term (current) drug therapy; F17.210 Nicotine dependence, cigarettes, uncomplicated; Y04.0XXA Assault by unarmed brawl or fight, initial encounter
CPT/HCPCS: 99282

== ENCOUNTER 2019-09-01 15:27 | Emergency (ER) | payer OTHER ==
[~2019-09-01] VITALS: Ht 172.7 cm; Wt 59.0 kg
[2019-09-01 16:04] LABS: BASOPHILS ABSOLUTE AUTO 0.05 K/mm3 (0.00-0.23); BASOPHILS PERCENT AUTO 1 % (0-2); EOSINOPHILS ABSOLUTE AUTO 0.25 K/mm3 (0.00-0.68); EOSINOPHILS PERCENT AUTO 2 % (0-6); Hematocrit 40.1 % (33.0-51.0); Hemoglobin 13.2 g/dL (11.5-16.0); Mean Corpuscular HGB 32.9 pg (26.0-34.0); Mean Corpuscular HGB Conc 32.9 g/dL (31.5-36.5); Mean Corpuscular Volume 100 fL (80-100); Mean Platelet Volume 10.2 fL (9.1-12.4); Platelet Count 347 K/mm3 (150-400); RDW Coefficient Variation 13.1 % (11.7-14.2); RDW Standard Deviation 48.5 fL (35.1-46.3); Red Blood Cell Count 4.01 M/mm3 (3.80-5.20); White Blood Cell Count 10.22 K/mm3 (4.00-11.30)
[2019-09-01 16:05] LABS: IMMATURE GRAN ABSOLUTE AUTO 0.03 K/mm3 (0.00-0.10); IMMATURE GRAN PERCENT AUTO 0 % (0-1); LYMPHOCYTES ABSOLUTE AUTO 7.45 K/mm3 (0.84-5.20); LYMPHOCYTES PERCENT AUTO 73 % (21-46); MONOCYTES ABSOLUTE AUTO 0.36 K/mm3 (0.16-1.47); MONOCYTES PERCENT AUTO 4 % (4-13); NEUTROPHILS ABSOLUTE AUTO 2.08 K/mm3 (1.96-9.15); NEUTROPHILS PERCENT AUTO 20 % (41-73)
[2019-09-01 16:05] LABS: Source, Urine Clean Catch
[2019-09-01 16:20] LABS: Appearance, Urine Clear (Clear); Bilirubin, Urine Neg (Neg); Blood, Urine Neg (Neg); Color, Urine Yellow (P-Yellow); Glucose Qualitative, Urine Neg (Neg); Ketones, Urine Neg (Neg); Leukocyte Esterase, Urine Neg (Neg); Nitrite, Urine Neg (Neg); Protein, Urine Neg (Neg); Specific Gravity, Urine 1.015 (1.003-1.022); Urobilinogen, Urine NORM (Normal)
[2019-09-01 16:27] LABS: Alanine Aminotransfer (ALT/SGP 46 U/L (12-78); Albumin, Blood 3.4 g/dL (3.4-5.0); Albumin/Globulin Ratio 0.7 (0.8-1.8); Alk Phos 91 U/L (50-136); Anion Gap 5 mmol/L (6-16); Aspartate Aminotrans (AST/SGOT 52 U/L (12-37); Bilirubin, Total 0.2 mg/dL (0.1-1.0); Blood Urea Nitrogen 7 mg/dL (8-24); Bun/Creatinine Ratio 11.1 (12.0-20.0); CO2, Blood 30 mmol/L (21-32); Calcium, Blood 10.1 mg/dL (8.5-10.1); Chloride, Blood 109 mmol/L (98-108); Creatinine, Blood 0.63 mg/dL (0.40-1.00); Globulin, Blood 4.8 g/dL (2.2-4.0); Glomerular Filtration Rate >60 (60-); Glucose, Blood 97 mg/dL (70-99); Potassium, Blood 3.8 mmol/L (3.5-5.5); Sodium, Blood 144 mmol/L (136-145); Total Protein, Blood 8.2 g/dL (6.4-8.2)
[2019-09-01 16:28] LABS: Ethanol (Alcohol), Blood, Med 365 mg/dL
[2019-09-01 16:36] LABS: U Amphetamine Screen Not Detected; U Barbituate Screen Not Detected; U Benzodiazapine Screen DETECTED; U Buprenorphine Screen Not Detected; U Cannabinoids Screen Not Detected; U Cocaine Screen Not Detected; U Methadone Screen Not Detected; U Methamphetamine Screen Not Detected; U Opiates Screen Not Detected; U Oxycodone Screen Not Detected; U Phencyclidine Screen Not Detected; U Propoxyphene Screen Not Detected
== END 2019-09-01 17:37 | disposition home or self-care (01) ==
LOC: ER 15:27
PROVIDERS: Physician Assistant
DX: F10.129 Alcohol abuse with intoxication, unspecified (principal); F17.210 Nicotine dependence, cigarettes, uncomplicated; Z88.8 Allergy status to other drugs, medicaments and biological substances; Z88.5 Allergy status to narcotic agent; Z79.899 Other long term (current) drug therapy; Z79.51 Long term (current) use of inhaled steroids; Y90.8 Blood alcohol level of 240 mg/100 ml or more
CPT/HCPCS: 36415; 80053; 81003; 85025; 99284; G0480

== ENCOUNTER 2019-09-15 17:52 | Emergency (ER) | payer OTHER ==
[~2019-09-15] VITALS: Ht 154.9 cm; Wt 60.8 kg
[2019-09-15 18:38] LABS: BASOPHILS ABSOLUTE AUTO 0.07 K/mm3 (0.00-0.23); BASOPHILS PERCENT AUTO 1 % (0-2); EOSINOPHILS ABSOLUTE AUTO 0.31 K/mm3 (0.00-0.68); EOSINOPHILS PERCENT AUTO 2 % (0-6); Hemoglobin 13.1 g/dL (11.5-16.0); IMMATURE GRAN ABSOLUTE AUTO 0.03 K/mm3 (0.00-0.10); IMMATURE GRAN PERCENT AUTO 0 % (0-1); LYMPHOCYTES ABSOLUTE AUTO 11.14 K/mm3 (0.84-5.20); LYMPHOCYTES PERCENT AUTO 74 % (21-46); MONOCYTES ABSOLUTE AUTO 0.57 K/mm3 (0.16-1.47); MONOCYTES PERCENT AUTO 4 % (4-13); Mean Corpuscular HGB Conc 33.6 g/dL (31.5-36.5); Mean Corpuscular Volume 98 fL (80-100); Mean Platelet Volume 10.6 fL (9.1-12.4); NEUTROPHILS ABSOLUTE AUTO 2.88 K/mm3 (1.96-9.15); NEUTROPHILS PERCENT AUTO 19 % (41-73); Platelet Count 216 K/mm3 (150-400); RDW Coefficient Variation 13.1 % (11.7-14.2); RDW Standard Deviation 46.8 fL (35.1-46.3); Red Blood Cell Count 3.97 M/mm3 (3.80-5.20)
[2019-09-15 18:55] LABS: Alanine Aminotransfer (ALT/SGP 48 U/L (12-78); Albumin, Blood 3.5 g/dL (3.4-5.0); Albumin/Globulin Ratio 0.8 (0.8-1.8); Alk Phos 67 U/L (50-136); Anion Gap 10 mmol/L (6-16); Aspartate Aminotrans (AST/SGOT 44 U/L (12-37); Bilirubin, Total 0.2 mg/dL (0.1-1.0); Blood Urea Nitrogen 5 mg/dL (8-24); Bun/Creatinine Ratio 10.1 (12.0-20.0); CO2, Blood 22 mmol/L (21-32); Calcium, Blood 8.6 mg/dL (8.5-10.1); Chloride, Blood 106 mmol/L (98-108); Globulin, Blood 4.4 g/dL (2.2-4.0); Glomerular Filtration Rate >60 (60-); Glucose, Blood 132 mg/dL (70-99); Potassium, Blood 3.4 mmol/L (3.5-5.5); Sodium, Blood 138 mmol/L (136-145); Total Protein, Blood 7.9 g/dL (6.4-8.2); Troponin I <0.015 ng/mL (0.000-0.040)
[2019-09-15 19:00] LABS: BASOPHILS PERCENT MAN 0 % (0-2); EOSINOPHILS ABSOLUTE MAN 0.45 K/mm3 (0.00-0.68); EOSINOPHILS PERCENT MAN 3 % (0-6); LYMPHOCYTES % ATYPICAL MANUAL 11 % (0-0); LYMPHOCYTES ABSOLUTE MAN 10.05 K/mm3 (0.84-5.20); LYMPHOCYTES PERCENT MAN 56 % (21-46); MONOCYTES ABSOLUTE MAN 0.75 K/mm3 (0.16-1.47); MONOCYTES PERCENT MAN 5 % (4-13); NEUTROPHILS ABSOLUTE MAN 3.75 K/mm3 (1.96-9.15); SEG NEUTROPHILS PERCENT MAN 25 % (41-73); TOTAL CELLS COUNTED 100
[2019-09-15 19:13] LABS: Ethanol (Alcohol), Blood, Med 463 mg/dL
== END 2019-09-15 21:05 | disposition home or self-care (01) ==
LOC: ER 17:52
PROVIDERS: Physician Assistant
DX: F10.129 Alcohol abuse with intoxication, unspecified (principal); D70.9 Neutropenia, unspecified; F17.210 Nicotine dependence, cigarettes, uncomplicated; Z88.8 Allergy status to other drugs, medicaments and biological substances; Z88.5 Allergy status to narcotic agent; Z79.899 Other long term (current) drug therapy; Z79.51 Long term (current) use of inhaled steroids; Y90.8 Blood alcohol level of 240 mg/100 ml or more
CPT/HCPCS: 36415; 71046; 80053; 84484; 85025; 93005; 93010; 99285-25; G0480

== ENCOUNTER 2019-09-27 10:45 | Emergency (ER) | payer OTHER ==
[~2019-09-27] VITALS: Ht 165.1 cm; Wt 56.7 kg
== END 2019-09-27 11:40 | disposition home or self-care (01) ==
LOC: ER 10:45
DX: F10.129 Alcohol abuse with intoxication, unspecified (principal); F17.210 Nicotine dependence, cigarettes, uncomplicated; Z79.899 Other long term (current) drug therapy
CPT/HCPCS: 99284

== ENCOUNTER 2019-09-30 11:47 | Emergency (ER) | payer OTHER | END 2019-09-30 12:11 | disposition left against medical advice (07) | LOC: ER 11:47 | DX: Z53.21 Procedure and treatment not carried out due to patient leaving prior to being seen by health care provider (principal) ==

== ENCOUNTER 2020-03-14 03:33 | Emergency (ER) | payer OTHER ==
[~2020-03-14] VITALS: Ht 165.1 cm; Wt 68.0 kg
[2020-03-14 04:05] LABS: BASOPHILS ABSOLUTE AUTO 0.06 K/mm3 (0.00-0.23); BASOPHILS PERCENT AUTO 1 % (0-2); EOSINOPHILS ABSOLUTE AUTO 0.27 K/mm3 (0.00-0.68); EOSINOPHILS PERCENT AUTO 3 % (0-6); Hematocrit 40.8 % (33.0-51.0); Hemoglobin 13.7 g/dL (11.5-16.0); Mean Corpuscular HGB 31.9 pg (26.0-34.0); Mean Corpuscular HGB Conc 33.6 g/dL (31.5-36.5); Mean Corpuscular Volume 95 fL (80-100); Platelet Count 204 K/mm3 (150-400); RDW Coefficient Variation 13.2 % (11.7-14.2); RDW Standard Deviation 46.8 fL (35.1-46.3); Red Blood Cell Count 4.29 M/mm3 (3.80-5.20); White Blood Cell Count 10.06 K/mm3 (4.00-11.30)
[2020-03-14 04:12] LABS: IMMATURE GRAN ABSOLUTE AUTO 0.01 K/mm3 (0.00-0.10); IMMATURE GRAN PERCENT AUTO 0 % (0-1); LYMPHOCYTES ABSOLUTE AUTO 6.73 K/mm3 (0.84-5.20); LYMPHOCYTES PERCENT AUTO 67 % (21-46); MONOCYTES ABSOLUTE AUTO 0.62 K/mm3 (0.16-1.47); MONOCYTES PERCENT AUTO 6 % (4-13); NEUTROPHILS ABSOLUTE AUTO 2.37 K/mm3 (1.96-9.15); NEUTROPHILS PERCENT AUTO 24 % (41-73)
[2020-03-14 04:24] LABS: Alanine Aminotransfer (ALT/SGP 42 U/L (12-78); Albumin, Blood 4.1 g/dL (3.4-5.0); Alk Phos 66 U/L (50-136); Anion Gap 6 mmol/L (6-16); Aspartate Aminotrans (AST/SGOT 57 U/L (12-37); Bilirubin, Total 0.4 mg/dL (0.1-1.0); Blood Urea Nitrogen 15 mg/dL (8-24); Bun/Creatinine Ratio 22.8 (12.0-20.0); CO2, Blood 29 mmol/L (21-32); Calcium, Blood 9.1 mg/dL (8.5-10.1); Chloride, Blood 107 mmol/L (98-108); Creatinine, Blood 0.66 mg/dL (0.40-1.00); Ethanol (Alcohol), Blood, Med 276 mg/dL; Globulin, Blood 4.2 g/dL (2.2-4.0); Glomerular Filtration Rate >60 (60-); Glucose, Blood 88 mg/dL (70-99); Potassium, Blood 4.1 mmol/L (3.5-5.5); Sodium, Blood 142 mmol/L (136-145); Total Protein, Blood 8.3 g/dL (6.4-8.2)
== END 2020-03-14 04:37 | disposition home or self-care (01) ==
LOC: ER 03:33
PROVIDERS: Emergency Medicine
DX: F10.129 Alcohol abuse with intoxication, unspecified (principal); Y90.8 Blood alcohol level of 240 mg/100 ml or more; F32.9 Major depressive disorder, single episode, unspecified; F43.10 Post-traumatic stress disorder, unspecified; J44.9 Chronic obstructive pulmonary disease, unspecified; Z88.8 Allergy status to other drugs, medicaments and biological substances; Z87.891 Personal history of nicotine dependence
CPT/HCPCS: 80053; 85025; 99285; G0480

== ENCOUNTER 2020-04-30 14:17 | Emergency (ER) | payer OTHER ==
[~2020-04-30] VITALS: Ht 154.9 cm; Wt 58.1 kg
[2020-05-01] MEDS ORDERED: Norco 5-325 Ta1 EACH PO (15:11)
[2020-05-01] MEDS ORDERED: Cleocin HCl300 MG PO (15:11)
[2020-05-01] MEDS ORDERED: CEPH500 PO (15:11)
== END 2020-04-30 15:13 | disposition left against medical advice (07) ==
LOC: ER 14:17
DX: Z53.21 Procedure and treatment not carried out due to patient leaving prior to being seen by health care provider (principal)

== ENCOUNTER 2020-05-01 11:19 | Emergency (ER) | payer OTHER ==
[~2020-05-01] VITALS: Ht 154.9 cm; Wt 58.1 kg
[2020-05-01 11:57] LABS: BASOPHILS ABSOLUTE AUTO 0.03 K/mm3 (0.00-0.23); BASOPHILS PERCENT AUTO 0 % (0-2); EOSINOPHILS ABSOLUTE AUTO 0.02 K/mm3 (0.00-0.68); EOSINOPHILS PERCENT AUTO 0 % (0-6); Hematocrit 38.8 % (33.0-51.0); Hemoglobin 13.1 g/dL (11.5-16.0); IMMATURE GRAN ABSOLUTE AUTO 0.03 K/mm3 (0.00-0.10); IMMATURE GRAN PERCENT AUTO 0 % (0-1); LYMPHOCYTES ABSOLUTE AUTO 4.87 K/mm3 (0.84-5.20); LYMPHOCYTES PERCENT AUTO 39 % (21-46); MONOCYTES ABSOLUTE AUTO 0.71 K/mm3 (0.16-1.47); MONOCYTES PERCENT AUTO 6 % (4-13); Mean Corpuscular HGB 31.7 pg (26.0-34.0); Mean Corpuscular HGB Conc 33.8 g/dL (31.5-36.5); Mean Corpuscular Volume 94 fL (80-100); Mean Platelet Volume 10.3 fL (9.1-12.4); NEUTROPHILS ABSOLUTE AUTO 6.82 K/mm3 (1.96-9.15); NEUTROPHILS PERCENT AUTO 55 % (41-73); Platelet Count 149 K/mm3 (150-400); RDW Coefficient Variation 13.1 % (11.7-14.2); RDW Standard Deviation 45.3 fL (35.1-46.3); Red Blood Cell Count 4.13 M/mm3 (3.80-5.20); White Blood Cell Count 12.48 K/mm3 (4.00-11.30)
[2020-05-01 12:19] LABS: Alanine Aminotransfer (ALT/SGP 53 U/L (12-78); Albumin, Blood 3.3 g/dL (3.4-5.0); Albumin/Globulin Ratio 0.7 (0.8-1.8); Alk Phos 59 U/L (50-136); Anion Gap 10 mmol/L (6-16); Aspartate Aminotrans (AST/SGOT 52 U/L (12-37); Bilirubin, Total 0.9 mg/dL (0.1-1.0); Blood Urea Nitrogen 5 mg/dL (8-24); Bun/Creatinine Ratio 11.7 (12.0-20.0); CO2, Blood 22 mmol/L (21-32); Calcium, Blood 8.8 mg/dL (8.5-10.1); Chloride, Blood 103 mmol/L (98-108); Creatinine, Blood 0.43 mg/dL (0.40-1.00); Globulin, Blood 4.5 g/dL (2.2-4.0); Glomerular Filtration Rate >60 (60-); Glucose, Blood 111 mg/dL (70-99); Potassium, Blood 3.3 mmol/L (3.5-5.5); Sodium, Blood 135 mmol/L (136-145); Total Protein, Blood 7.8 g/dL (6.4-8.2)
[2020-05-01] MEDS ORDERED: CEPH500 PO (15:11)
[2020-05-01] MEDS ORDERED: Norco 5-325 Ta1 EACH PO (15:11)
[2020-05-01] MEDS ORDERED: Cleocin HCl300 MG PO (15:11)
== END 2020-05-01 15:33 | disposition home or self-care (01) ==
LOC: ER 11:19
PROVIDERS: Emergency Medicine
DX: L03.115 Cellulitis of right lower limb (principal); F10.20 Alcohol dependence, uncomplicated; J44.9 Chronic obstructive pulmonary disease, unspecified; F17.210 Nicotine dependence, cigarettes, uncomplicated; Z88.8 Allergy status to other drugs, medicaments and biological substances; Z88.6 Allergy status to analgesic agent
CPT/HCPCS: 36415; 73610; 80053; 83605; 85025; J0696; J2405; J3010; J7030

== ENCOUNTER 2020-06-10 08:16 | Emergency (ER) | payer OTHER ==
[~2020-06-10] VITALS: Ht 154.9 cm; Wt 54.0 kg
[~2020-06-10 08:16] MED LIST changes: +Cleocin HCl300 MG PO; +Norco 5-325 Ta1 EACH PO
[2020-06-10] MEDS ORDERED: SERT25 (08:37)
[2020-06-10] MEDS ORDERED: METPHE5 PO (08:37)
== END 2020-06-10 10:04 | disposition home or self-care (01) ==
LOC: ER 08:16
DX: S00.83XA Contusion of other part of head, initial encounter (principal); S50.12XA Contusion of left forearm, initial encounter; S50.11XA Contusion of right forearm, initial encounter; J44.9 Chronic obstructive pulmonary disease, unspecified; F17.210 Nicotine dependence, cigarettes, uncomplicated; Z88.6 Allergy status to analgesic agent; Z88.8 Allergy status to other drugs, medicaments and biological substances; Z88.5 Allergy status to narcotic agent; Y04.8XXA Assault by other bodily force, initial encounter
CPT/HCPCS: 70450; 72125; 73090; 73100; 99284-25

== ENCOUNTER 2020-06-11 14:30 | Emergency (ER) | payer OTHER ==
[~2020-06-11 14:30] MED LIST changes: +METPHE5 PO
== END 2020-06-11 15:37 | disposition left against medical advice (07) ==
LOC: ER 14:30
DX: Z53.21 Procedure and treatment not carried out due to patient leaving prior to being seen by health care provider (principal)

== ENCOUNTER 2020-06-14 06:06 | Emergency (ER) | payer OTHER ==
[~2020-06-14] VITALS: Ht 154.9 cm; Wt 54.4 kg
== END 2020-06-14 07:14 | disposition home or self-care (01) ==
LOC: ER 06:06
DX: R07.89 Other chest pain (principal); R03.0 Elevated blood-pressure reading, without diagnosis of hypertension; F32.9 Major depressive disorder, single episode, unspecified; J44.9 Chronic obstructive pulmonary disease, unspecified; Z88.8 Allergy status to other drugs, medicaments and biological substances; Z88.6 Allergy status to analgesic agent; Z79.899 Other long term (current) drug therapy
CPT/HCPCS: 93005; 93010; 96374; 99284-25; J2405

== ENCOUNTER 2020-06-21 20:09 | Emergency (ER) | payer OTHER ==
[~2020-06-21] VITALS: Ht 154.9 cm; Wt 49.0 kg
== END 2020-06-21 20:52 | disposition home or self-care (01) ==
LOC: ER 20:09
DX: F10.229 Alcohol dependence with intoxication, unspecified (principal); R07.9 Chest pain, unspecified; R10.9 Unspecified abdominal pain; R51.9 Headache, unspecified; J44.9 Chronic obstructive pulmonary disease, unspecified; F17.210 Nicotine dependence, cigarettes, uncomplicated; Z88.8 Allergy status to other drugs, medicaments and biological substances; Z88.6 Allergy status to analgesic agent; Z79.899 Other long term (current) drug therapy
CPT/HCPCS: 99284

== ENCOUNTER 2022-02-24 21:59 | Emergency (ER) | payer OTHER ==
[~2022-02-24] VITALS: Ht 154.9 cm; Wt 54.4 kg
[2022-02-24 23:08] LABS: BASOPHILS ABSOLUTE AUTO 0.03 K/mm3 (0.00-0.23); BASOPHILS PERCENT AUTO 1 % (0-2); EOSINOPHILS ABSOLUTE AUTO 0.23 K/mm3 (0.00-0.68); EOSINOPHILS PERCENT AUTO 5 % (0-6); Hematocrit 37.7 % (33.0-51.0); Hemoglobin 12.8 g/dL (11.5-16.0); IMMATURE GRAN PERCENT AUTO 0 % (0-1); LYMPHOCYTES ABSOLUTE AUTO 2.87 K/mm3 (0.84-5.20); LYMPHOCYTES PERCENT AUTO 60 % (21-46); MONOCYTES ABSOLUTE AUTO 0.36 K/mm3 (0.16-1.47); MONOCYTES PERCENT AUTO 8 % (4-13); Mean Corpuscular HGB 32.5 pg (26.0-34.0); Mean Corpuscular Volume 96 fL (80-100); Mean Platelet Volume 10.5 fL (9.1-12.4); NEUTROPHILS PERCENT AUTO 27 % (41-73); Platelet Count 150 K/mm3 (150-400); RDW Coefficient Variation 12.2 % (11.7-14.2); RDW Standard Deviation 43.2 fL (35.1-46.3); Red Blood Cell Count 3.94 M/mm3 (3.80-5.20); White Blood Cell Count 4.79 K/mm3 (4.00-11.30)
[2022-02-24 23:24] LABS: Albumin, Blood 3.1 g/dL (3.4-5.0); Albumin/Globulin Ratio 0.9 (0.8-1.8); Bilirubin, Total 0.4 mg/dL (0.1-1.0); Bun/Creatinine Ratio 22.4 (12.0-20.0); Calcium, Blood 9.2 mg/dL (8.5-10.1); Creatinine, Blood 0.54 mg/dL (0.40-1.00); Globulin, Blood 3.4 g/dL (2.2-4.0); Potassium, Blood 4.1 mmol/L (3.5-5.5); Total Protein, Blood 6.5 g/dL (6.4-8.2)
[2022-02-25] MEDS ORDERED: CHLO25 PO (00:35)
== END 2022-02-25 01:40 | disposition home or self-care (01) ==
LOC: ER 21:59
PROVIDERS: Student in an Organized Health Care Education/Training Program
DX: F10.139 Alcohol abuse with withdrawal, unspecified (principal); F17.210 Nicotine dependence, cigarettes, uncomplicated; F32.A Depression, unspecified; J44.9 Chronic obstructive pulmonary disease, unspecified; Z88.6 Allergy status to analgesic agent; Z88.8 Allergy status to other drugs, medicaments and biological substances; Z79.899 Other long term (current) drug therapy
CPT/HCPCS: 36415; 80053; 83690; 85025; 93005; 93010; 99285-25; A9270